=== PATIENT | male | born 1950 | race African-American/Black ===

== ENCOUNTER 2021-05-19 11:11 | Emergency (ER) | payer MEDICARE, MEDICAID ==
[~2021-05-19] VITALS: Ht 180.3 cm; Wt 87.0 kg
[2021-05-19 11:57] VITALS: BP 134/77
[2021-05-19 12:00] VITALS: BP 132/80
[2021-05-19 12:18] VITALS: BP 153/83
[2021-05-19 13:25] LABS: HEMATOCRIT 46.8 % (39.0-50.0); HEMOGLOBIN 14.8 g/dl (14.0-18.0); IMMATURE GRANULOCYTES 0.2 % (0.0-5.0); MEAN CELL VOLUME 87.3 fL CALC (80.0-100.0); MEAN CORPUSCULAR HGB 27.6 pG CALC (26.0-32.0); MEAN CORPUSCULAR HGB CONC 31.6 g/dL CAL (32.0-36.0); NEUT# 2.97 thou/uL (1.82-7.42); RED BLOOD COUNT 5.36 mill/uL (4.70-6.10); RED CELL DISTRI WIDTH 13.8 % (11.5-15.5)
[2021-05-19 13:25] LABS: URINE BILIRUBIN - DIPSTICK NEGATIVE (NEGATIVE); URINE BLOOD DIPSTICK NEGATIVE (NEGATIVE); URINE COLOR YELLOW; URINE GLUCOSE - DIPSTICK NEGATIVE (NEGATIVE); URINE KETONE NEGATIVE (NEGATIVE); URINE LEUK ESTERASE NEGATIVE (NEGATIVE); URINE PROTEIN - DIPSTICK NEGATIVE (NEG-TRACE); URINE SPECIFIC GRAVITY <=1.005; URINE UROBILINOGEN - DIPSTICK 0.2 E.U./dL (0.2)
[2021-05-19 13:31] LABS: ALBUMIN 4.7 g/dL (3.2-5.0); ALKALINE PHOSPHATASE 87 u/l (38-126); ANION GAP 12 (6-22 (CALC)); BILIRUBIN, TOTAL 0.3 mg/dL (0.0-1.4); BUN 10 mg/dL (8-23); BUN/CREATININE RATIO 9 (12-20 (CALC)); CARBON DIOXIDE 30 mmol/l (22-30); CHLORIDE 103 mmol/l (95-108); CREATININE 1.1 mg/dL (0.7-1.3); GFR > 60 ML/MIN (>=60 (CALC)); GFR FOR AFR.AMER. > 60 ML/MIN (>=60 (CALC)); POTASSIUM 4.4 mmol/l (3.5-5.1); SGOT/AST 21 u/l (19-48); SODIUM 141 mmol/l (137-146); TOTAL PROTEIN 8.4 g/dL (6.3-8.2)
[2021-05-19 13:32] LABS: URINE NITRITE - DIPSTICK NEGATIVE (Negative)
[2021-05-19 13:50] VITALS: BP 140/89
[2021-05-19 15:46] VITALS: BP 145/83
[2021-05-19] MEDS ORDERED: METFORMIN500 M2 PO (15:57)
[2021-05-19] MEDS ORDERED: ISOSORB MONO30 MG PO (15:57)
[2021-05-19] MEDS ORDERED: LISINOPRIL2.5 MG PO (15:57)
[2021-05-19] MEDS ORDERED: TAMSULOSIN0.4 MG PO (15:57)
[2021-05-19] MEDS ORDERED: LIPITOR40 M1 PO (15:57)
[2021-05-19] MEDS ORDERED: FLONASE AL50 MCG/ACT NAB (15:59)
[2021-05-19] MEDS ORDERED: bp (16:04)
[2021-05-19 16:24] VITALS: BP 145/83
== END 2021-05-19 16:24 | disposition home or self-care (01) ==
LOC: ED 11:11
PROVIDERS: Nurse Practitioner
DX: Z76.0 Encounter for issue of repeat prescription (principal); I10 Essential (primary) hypertension; E11.9 Type 2 diabetes mellitus without complications; I25.10 Atherosclerotic heart disease of native coronary artery without angina pectoris; E78.5 Hyperlipidemia, unspecified; Z79.84 Long term (current) use of oral hypoglycemic drugs; Z79.82 Long term (current) use of aspirin

== ENCOUNTER 2023-09-17 22:07 | Emergency (ER) | payer MEDICARE, MEDICAID ==
[~2023-09-17] VITALS: Ht 180.3 cm; Wt 75.0 kg
[~2023-09-17 22:07] MED LIST: ALLERGY RELIEF4 MG PO; AMOX/K CLAV875 M1 PO; ASPIRIN 81 LOW81 MG PO; FLONASE AL50 MCG/ACT NAB; ISOSORB MONO30 MG PO; LIPITOR40 M1 PO; LISINOPRIL2.5 MG PO; METFORMIN500 M2 PO; TAMSULOSIN0.4 MG PO; bp
[2023-09-17] MEDS ORDERED: Pantoprazole Sodium 40 MG VIAL (Protonix) IV ONE (22:55)
[2023-09-17] MEDS ORDERED: SODIUM CHLORIDE 0.9% 1,000 ML IV ONE (22:55)
[2023-09-17] MEDS ORDERED: ALUM & MAG HYDROX-SIMETHICONE 30 ML PO ONE (22:55)
[2023-09-17 23:25] LABS: BASO% 0.3 % (0-3); EOS% 0.2 % (0-8); HEMATOCRIT 40.1 % (39.0-50.0); HEMOGLOBIN 13.2 g/dl (14.0-18.0); IMMATURE GRANULOCYTES 0.2 % (0.0-5.0); MEAN CELL VOLUME 85.3 fL CALC (80.0-100.0); MEAN CORPUSCULAR HGB 28.1 pG CALC (26.0-32.0); MEAN CORPUSCULAR HGB CONC 32.9 g/dL CAL (32.0-36.0); NEUT# 8.38 thou/uL (1.82-7.42); NEUT% 86.3 % (42-76); RED BLOOD COUNT 4.7 mill/uL (4.70-6.10); RED CELL DISTRI WIDTH 13.7 % (11.5-15.5)
[2023-09-17 23:36] LABS: ALBUMIN 4.1 g/dL (3.2-5.0); BILIRUBIN, TOTAL 0.4 mg/dL (0.2-1.3); CREATININE 1.1 mg/dL (0.7-1.3); POTASSIUM 4.5 mmol/l (3.5-5.1); TOTAL PROTEIN 7.4 g/dL (6.3-8.2)
[2023-09-18] MEDS ORDERED: ONDANSETRON4 MG PO (00:44)
[2023-09-18] MEDS ORDERED: MAGNESIUM CITRATE 296 ML/BTL PO ONE (00:45)
[2023-09-18 01:52] VITALS: BP 134/78
== END 2023-09-18 02:00 | disposition home or self-care (01) ==
LOC: ED 22:07
PROVIDERS: Family Medicine
DX: R11.10 Vomiting, unspecified (principal); I10 Essential (primary) hypertension; E11.9 Type 2 diabetes mellitus without complications; Z20.822 Contact with and (suspected) exposure to COVID-19
CPT/HCPCS: J2470